=== PATIENT | male | born 1990 | race Caucasian/White ===

== ENCOUNTER 2025-05-23 12:06 | Emergency (ER) | payer SELFPAY ==
[~2025-05-23] VITALS: Ht 182.9 cm; Wt 87.0 kg
[2025-05-23 12:09] VITALS: O2SAT 99
[2025-05-23 14:27] VITALS: BP 122/64; PULSE 68; RESP 14; TEMP 36.7; O2SAT 100
== END 2025-05-23 14:35 | disposition home or self-care (01) ==
LOC: ER 12:06
DX: M79.671 Pain in right foot (principal); M79.672 Pain in left foot
CPT/HCPCS: 99283